=== PATIENT | female | born 1990 | race Caucasian/White ===

== ENCOUNTER 2025-02-21 09:02 | Day surgery (SDC) | payer BC ==
[2025-02-21] MEDS: Ringers Lactate 1,000 ML IV ONE (09:30)
[2025-02-21] MEDS ORDERED: BACITRACIN OINTMENT 14 GM TUBE TOP ONE (10:34)
[2025-02-21] MEDS ORDERED: NA CHLORIDE 0.9% 250 ML ONE (11:01)
[2025-02-21] MEDS ORDERED: ROCURONIUM 50 MG/5 ML VIAL IV ONE (11:06)
[2025-02-21] MEDS ORDERED: LIDOCAINE 1% MPF 5 ML VIAL ONE (11:06)
[2025-02-21] MEDS ORDERED: ONDANSETRON 4 MG/2 ML VIAL ONE (11:06)
[2025-02-21] MEDS ORDERED: MIDAZOLAM HCL 2 MG/2 ML INJ ONE (11:07)
[2025-02-21] MEDS ORDERED: FENTANYL CITR 100 MCG/2 ML ONE (11:07)
[2025-02-21] MEDS: CEFAZOLIN SODIUM 1 GM/VIAL ONE (11:30)
[2025-02-21] MEDS: OXYMETAZOLINE HCL 0.05% 30ML NAS ONE (11:32)
[2025-02-21] MEDS: LIDOCAINE HCL/EPINEPHRINE 20 ML MDV ONE (11:36)
[2025-02-21] MEDS ORDERED: TRANEXAMIC ACID 1,000 MG/10 ML VIAL IV ONE (12:53)
--- NOTE | 2025-02-21 13:16 | P.OP ---
Date of Service: 02/21/25 Preoperative Diagnosis: Chronic maxillary sinusitis, nasal obstruction, julieth bullosa, middle turbinate hypertrophy Postoperative diagnosis: Same Procedure: Left nasal endoscopy with maxillary antrostomy and julieth bullosa resection. Right nasal endoscopy with julieth bullosa resection Surgeon: Viktoriya Tavera MD Billboard Poster: None Indication for procedure: The patient presented with complaint of headache and CT demonstrating complete opacification and contraction of the left maxillary sinus suspicious for silent sinus syndrome additionally she had nasal obstruction and was noted to have bilateral middle turbinate hypertrophy with julieth bullosa. I recommended left maxillary antrostomy with resection of bilateral julieth bullosa. The risks, benefits, and alternatives to surgical procedure were discussed with the patient and/or family and they agreed to proceed. Surgical findings: Thick mucoid fluid of the left maxillary sinus. Julieth bullosa as expected IV Fluids: Crystalloid, see anesthesia record Implants/Packing: PosiSep BAM to bilateral middle meatus Estimated Blood Loss: 20ml Complications: None Description of procedure in detail: The patient was brought to the operating room. They were placed under general anesthesia via oral endotracheal tube. The head of bed was turned 90 degrees. The nasal hairs were trimmed. The nasal cavity was examined with the nasal speculum and headlight with the following findings: No significant abnormalities on anterior rhinoscopy. The nasal cavity was packed with Afrin-soaked pledgets in preparation for the procedure. The patient was draped in a standard fashion for nasal surgery. A 0 degree endoscope was then used to perform a nasal endoscopy with notable findings of enlarged and widened bilateral middle turbinate with lateral retraction of the left uncinate process and scarring of the lateral nasal wall. Photo documentation was obtained. The bilateral middle turbinate was injected with 1% lidocaine with epinephrine. After time for effect, a sickle knife was used to make a vertical incision in the left middle turbinate. A endoscopic scissor and through-cutting Blakesley were used to divide the julieth bullosa. The lateral aspect of the contra was removed using a straight Blakesley. Overall bleeding was limited. This significantly opened the middle meatus. Once the middle turbinate julieth had been adequately addressed, attention was turned to the left maxillary sinus. The lateral nasal wall including the uncinate process were visualized and noted to be significantly retracted laterally. The uncinate appeared to be plastered along the lateral nasal wall and was gently elevated using a maxillary seeker. This allowed for removal of the uncinate using the backbiter and 90 degree Blakesley. There was scarring and the antrostomy was not initially visible. A rigid 30 degree endoscope was then employed for better visualization of the lateral nasal wall. Additional gentle dissection was carried out to identify the natural ostium but due to scarring this was significantly difficult. A Blakesley was used to gently irish ve additional soft tissue in the area of the uncinate attachment anteriorly but during removal, the mucosal attached to the inferior turbinate was inadvertently torn resulting in redundancy the and displacement of the soft tissue. During debridement of this tissue, a small fenestration was made in the superior aspect of the mid inferior turbinate but this was not felt to be significant enough to require more formal removal of the inferior turbinate. This was judiciously removed using a 2 mm microdebrider to trim the loose mucosa and aid in better visualization of this area. An area of thin tissue was noted and did not move with external palpation of the globe. This was judiciously palpated and punctured using the maxillary seeker. The maxillary seeker was then used to divide a thin mucosal layer resulting in identification of the maxillary antrum. The maxillary sinus was filled with very thick white mucoid fluid which was suctioned until completely removed. The antrostomy was then refined using the microdebrider to remove loose soft tissue. The middle meatus was packed with Afrin-soaked pledgets and attention was turned to the right nasal cavity. A 0 degree endoscope was used to visualize the right middle turbinate and a sickle knife was used to make a vertical incision along the right middle turbinate. Endoscopic scissors and a 45 degree Blakesley were used to cut and remove the lateral portion of the contra. A moderate amount of bleeding was noted and the area was packed with Afrin soaked pledgets for several minutes. Following removal of the pledgets, the bilateral nasal cavity were suctioned and a PosiSep BAM resorbable sinus dressing was cut in half and each half was placed into the middle meatus. The dressing was soaked with saline. The area was obse rved for several minutes and there was no evidence of active bleeding or oozing. Due to the degree of oozing on the right side, anesthesia team was asked to administer 1 g of trans examined acid via IV for stabilization of the clot. At the conclusion of the procedure, all pledget counts were confirmed correct. The patient was returned to care of anesthesia for awakening extubation in the operating room which proceeded without difficulty. The patient was transported to the recovery room and will be discharged home later today in the care of their family. The patient is given written and verbal instructions regarding the importance of saline irrigations and nasal precautions.
[2025-02-21] MEDS: HYDROMORPHONE HCL 1 MG/ML INJ ONE ×2 (13:34→13:45)
[2025-02-21] MEDS: LABETALOL 20 MG/4ML SYRINGE IV ONE (13:46)
[2025-02-21 14:16] VITALS: BP 145/97; TEMP 98.6; O2SAT 97
[2025-02-21] MEDS: TRAMADOL HCL 50 MG TAB ONE (14:45)
[2025-02-21] MEDS: ONDANSETRON 4 MG/2 ML VIAL ONE (15:23)
== END 2025-02-21 16:33 | disposition home or self-care (01) ==
LOC: OR 09:02
PROVIDERS: ATTEND Otolaryngology
PROC: 09TL8ZZ Resection of Nasal Turbinate, Via Natural or Artificial Opening Endoscopic (ICD-10-PCS; 2025-02-21)
PROC: 099R8ZZ Drainage of Left Maxillary Sinus, Via Natural or Artificial Opening Endoscopic (ICD-10-PCS; principal; 2025-02-21 10:00)
DX: J32.0 Chronic maxillary sinusitis (principal); J34.89 Other specified disorders of nose and nasal sinuses; J34.3 Hypertrophy of nasal turbinates
CPT/HCPCS: 88305; 88311; 31240; 31267; J2704; J2003; J2250; J3010; J1100; J1171 ×2; J2405 ×2; J7120; J7050; J0690; 88304